=== PATIENT | female | born 1975 ===

== ENCOUNTER 2016-11-27 23:05 | Emergency (ER) | payer BC ==
[~2016-11-27] VITALS: Ht 160 cm; Wt 76.9 kg
[~2016-11-27 23:05] MED LIST: IRON PO; MTR600X PO; OXYC5TAB PO; PRENTAB26 PO
[2016-11-27 23:08] VITALS: TEMP 36.8; Ht 160 cm; Wt 76.9 kg
[2016-11-27] MEDS ORDERED: OXYCODONE HCL IR 5 MG TAB (IMMEDIATE RELEASE) PO STA (23:21)
[2016-11-27] MEDS ORDERED: AMOXICILLIN/CLAVULANATE TAB 875 MG TAB PO ONE (23:30)
--- NOTE | 2016-11-27 23:48 | EMERGENCY ROOM VISIT NOTE ---
History Report prepared by Kaylen: Freida Ovalles Under the Supervision of: Dr. Dawood Carballo D.O. First contact with patient: 23:10 Chief Complaint: BLEEDING Stated Complaint: BLEED FROM SCAR ( OCTOBER 02), SMELL Nursing Triage Summary: Patient c/o bleeding scar and odor from abdomen. October 02. History of Present Illness The patient is a 41 year old female who presents to the Emergency Room with complaints of intermittent bleeding beginning earlier tonight. The patient had a 8 weeks ago on October 02. She has been doing well since the procedure. She has had vaginal bleeding since then that she states has almost completely resolved. Tonight while the patient was in the shower she noticed some bleeding from her incision. The incision had a foul odor. She notes some tenderness around the right side of the incision but denies any abdominal pain. The patient denies fevers and abnormal vaginal discharge. Source of History: patient Onset: tonight Position: abdomen Quality: other (bleeding) Timing: intermittent Modifying Factors (Worsening): other (previous ) Associated Symptoms: No abdominal pain, No fevers Note: Pt reports a foul odor. Review of Systems See HPI for pertinent positives & negatives. A total of 10 systems reviewed and were otherwise negative. Past Medical & Surgical Medical Problems: (1) 38 weeks gestation of (2) Advanced maternal age (AMA), 40 years or greater (3) (4) with 39 completed weeks gestation Surgical Problems: (1) Previous delivery affecting , antepartum Family History No pertinent history stated. Social History Smoking Status: Never Smoker Marital Status: Housing Status: lives with family Occupation Status: employed Current/Historical Medications Scheduled Amoxicillin & Pot Clavulanate (Augmentin 875-125 mg), 875 MG PO BID Multivit/Min/Iron/Fol Ac/Pren ( Vitamin), 1 TAB PO QAM Allergies Coded Allergies: Nut Tree (Verified Allergy, Intermediate, ITCHY THROAT, 11/28/16) Latex1 -Allergic Contact Dermititis (Verified Allergy, Mild, RASH, 11/28/16 ) NO KNOWN DRUG ALLERGIES (Unverified Allergy, Unknown, NONE, 10/01/16) Physical Exam Vital Signs Date Time Temp Pulse Resp B/P Pulse Ox O2 Delivery O2 Flow Rate FiO2 11/28/16 01:27 58 18 136/78 95 Room Air 11/27/16 23:08 36.8 74 18 144/90 97 Room Air Physical Exam GENERAL: Patient is awake, alert, and in no acute distress. Patient is resting comfortably and showing no signs of anxiety EYES: The conjunctivae are clear. The pupils are round and reactive. EARS, NOSE, MOUTH AND THROAT: The nose is without any evidence of any deformity. Mucous membranes are moist tongue is midline NECK: The neck is nontender and supple. RESPIRATORY: Normal respiratory effort is noted there is no evidence of wheezing rhonchi or rales CARDIOVASCULAR: Regular rate and rhythm noted there no murmurs rubs or gallops normal S1 normal S2 GASTROINTESTINAL: The abdomen is soft, nondistended, no tenderness guarding or rigidity. Horizontal suprapubic scar noted. Steri strips were still in place. The right lateral most part of the scar has dehisced. There is a small amount of bloody drainage noted. There was no surrounding cellulitis. MUSCULOSKELETAL/EXTREMITIES: There is no evidence of gross deformity full range of motion is noted in the hips and shoulders SKIN: There is no obvious evidence of any rash. There are no petechiae, pallor or cyanosis noted. NEUROLOGIC: Patient is awake alert and oriented x3 Medical Decision & Procedures ER Provider Diagnostic Interpretation: Radiology results as stated below per my review and radiologist interpretation: US SOFT TISSUE: No fluid collection or other abnormality in the area of interest. Radiologist: Ranjith Appiah M.D. Medications Administered Medications (Trade) Dose Ordered Sig/Guy Route Start Time Stop Time Status Last Admin Dose Admin Oxycodone HCl (Roxicodone Immediate Rel Tab) 5 mg NOW STAT PO 11/27/16 23:21 11/27/16 23:24 DC 11/27/16 23:43 5 MG Amoxicillin/ Clavulanate Potassium (Augmentin Tab) 875 mg ONE ONCE PO 11/27/16 23:30 11/27/16 23:31 DC 11/27/16 23:43 875 MG ED Course 2310: The patient was evaluated in room C6. A complete history and physical examination were performed. 2321: Oxycodone HCl 5 mg PO 2330: Augmentin tab 875 mg PO 0230: Oxycodone HCl 1 homepack PO, Augmentin 875 mg 1 homepack PO 0237: I reassessed the patient at this time. She is feeling better and resting comfortably. I discussed the results and treatment plan with the patient. I answered all pertaining questions that she had. She expressed understanding and verbalized agreement. The patient will be discharged home. Medical Decision Differential diagnosis: Etiologies such as cellulitis, abscess, MRSA infection, DVT, necrotizing fasciitis, dermatitis, drug eruption, as well as others were entertained.. Nursing notes reviewed. The patient is a 41-year-old female who presented to the emergency department for evaluation of pain and drainage on her site. The patient had a C- section 8 weeks ago and noticed bleeding. She has what appears to be minor dehiscence on the right lateral aspect of her surgical site. She was concerned it could be signs of infection. A culture was taken. Ultrasound did not reveal any significant fluid collection. The patient was started on an antibiotic. She was encouraged to call her STATISTICAL PROGRAMMER physician in the morning. She was also encouraged to continue all medications as prescribed. She was also encouraged return to emergency department immediately if symptoms change worsen or the need arises. The patient's physical exam was not consistent with significant cellulitis or sepsis. Impression Primary Impression: Postoperative seroma Additional Impression: possible postoperative infection Scribe Attestation The scribe's documentation has been prepared under my direction and personally reviewed by me in its entirety. I confirm that the note above accurately reflects all work, treatment, procedures, and medical decision making performed by me. Departure Information Dispostion Home / Self-Care Prescriptions Amoxicillin & Pot Clavulanate (Augmentin 875-125 mg) 1 Tab Tab 875 MG PO BID for 7 Days, #14 TAB Prov: Dawood Carballo DO 11/28/16 Referrals No Doctor, Assigned (PCP) Kathryn See M.D. Forms HOME CARE DOCUMENTATION FORM, IMPORTANT VISIT INFORMATION Patient Instructions ED Wound Check Post Op Infec, On License Of [facility] Additional Instructions Call your STATISTICAL PROGRAMMER physician in the morning to schedule a recheck this week. Continue using Motrin and Tylenol as directed for pain. Continue to put a bulky dressing to the area 2 times a day. Problem Qualifiers Primary Impression: Postoperative seroma Surgical complication system/body Area: skin Procedure type: non- dermatologic Qualified Codes: L76.34 - Postprocedural seroma of skin and subcutaneous tissue following other procedure
[2016-11-28 01:27] VITALS: BP 136/78
[2016-11-28] MEDS ORDERED: AMOXICIL/CLAVU 875MG HOME PACK PO ONE (02:30)
[2016-11-28] MEDS ORDERED: OXYCODONE IR HOME PACK PO ONE (02:30)
[2016-11-28] MEDS ORDERED: AMOX875T PO (02:32)
[2016-11-28 02:57] VITALS: PULSE 60; O2SAT 97
--- NOTE | 2016-11-28 07:04 | DIAGNOSTIC IMAGING REPORT ---
ULTRASOUND PELVIC WALL CLINICAL HISTORY: Bleeding from section scar. COMPARISON STUDY: No priors. FINDINGS: Real-time, grayscale, and color flow sonography of the suprapubic pelvic wall is performed at the indicated site of interest. No abnormality is seen at this site. There is no organized fluid collection or mass lesion. IMPRESSION: No hepatomegaly is identified in the pelvic wall at the site of interest. Electronically signed by: Yamil Luu M.D. 11/28/2016 7:02 AM Dictated Date/Time: 11/28/2016 7:01 AM
--- NOTE | 2016-12-03 14:25 | Pharmacy Progress Note ---
ED Pharmacist Culture FollowUp Date of Service: Dec 03, 2016. Patient was sent home with a prescription for Augmentin 875mg PO BID x 7 days, which should cover the E coli and Enterococcus faecalis growing from the patient 's incision drainage culture. This culture is also growing the anaerobe, Prevotella bivia. Sensitivity testing will not be performed on this organism by our lab, however it is possible this organism is also covered with Augmentin based on references reviewed. No action required at this time.
== END 2016-11-28 02:58 | disposition home or self-care (01) ==
LOC: C.EDB 23:06 → C.EDC 11-28 02:58
DX: L76.82 Other postprocedural complications of skin and subcutaneous tissue (principal)

== ENCOUNTER 2017-05-13 21:04 | Emergency (ER) | payer BC ==
[~2017-05-13] VITALS: Ht 158.8 cm; Wt 74.3 kg
[~2017-05-13 21:04] MED LIST changes: -IRON PO; -MTR600X PO; -OXYC5TAB PO
[2017-05-13 21:17] VITALS: BP 127/86; PULSE 93; TEMP 36.7; O2SAT 95; Ht 158.8 cm; Wt 74.3 kg
[2017-05-13] MEDS ORDERED: RABIES VACCINE (IMOVAX) HUMAN DIPL CELL 2.5 INTER.UNIT/ML SYR IM. ONE (21:45)
[2017-05-13] MEDS ORDERED: RABIES IMMUNE GLOBULIN (HUMAN) 150 INTER.UNIT/ML 2 ML VIAL IM. ONE (21:45)
[2017-05-13] MEDS ORDERED: AMOX875T PO (22:17)
[2017-05-13] MEDS ORDERED: ALLERGY PILL PO (22:22)
--- NOTE | 2017-05-13 22:47 | DIAGNOSTIC IMAGING REPORT ---
LEFT SECOND TOE 3 VIEWS CLINICAL HISTORY: Second toe pain. FINDINGS: 3 views of left second toe are obtained. No prior studies are available for comparison at the time of dictation. The skeletal structures are well mineralized. No fracture is seen in the second toe. The metatarsophalangeal and interphalangeal joints are preserved. The overlying soft tissues are within normal limits. IMPRESSION: Unremarkable radiographic assessment of the left second toe. Electronically signed by: Yamil Luu M.D. 05/13/2017 10:46 PM Dictated Date/Time: 05/13/2017 10:45 PM
[2017-05-13] MEDS ORDERED: AMOXICIL/CLAVU 875MG HOME PACK PO ONE (23:15)
--- NOTE | 2017-05-13 23:37 | EMERGENCY ROOM VISIT NOTE ---
History First contact with patient: 21:18 Chief Complaint: BITE Stated Complaint: ATTACKED BY A REDMOND History of Present Illness The patient is a 41 year old female who presents to the Emergency Room with complaints of being attacked by a redmond this evening. The patient was pushing her 7-month-old child, and walking her dog in her neighborhood when she noticed a redmond in the neighbor's yard. As she continued to walk, the redmond started to follow her and then started to attack the dog. When she turned around to try to laxmi it away, and attacked her by biting her in the right foot and left arm. The patient reports that she did fall onto her left side, but sustained no injury to the face, head or back. The erdmond did not attack her child before running away. She reports that the neighbor did kill the redmond, which is currently being tested for rabies. Police were on scene. The patient rates her overall discomfort a 3 out of 10. Tetanus immunization is up-to-date. Review of Systems 10 system review was performed and was negative except for pertinent positives and negatives as indicated in history of present illness Past Medical/Surgical History Medical Problems: (1) 38 weeks gestation of (2) Advanced maternal age (AMA), 40 years or greater (3) (4) with 39 completed weeks gestation Surgical Problems: (1) Previous delivery affecting , antepartum Family History Unremarkable Social History Smoking Status: Never Smoker Marital Status: Housing Status: lives with family Occupation Status: employed Current/Historical Medications Scheduled Amoxicillin & Pot Clavulanate (Augmentin 875-125 mg), 1 TAB PO BID Scheduled PRN [Allergy Pill], 1 TAB PO DAILY PRN for ALLERGIC REACTION Allergies Coded Allergies: Nut Tree (Verified Allergy, Intermediate, ITCHY THROAT, 11/28/16) Latex1 -Allergic Contact Dermititis (Verified Allergy, Mild, RASH, 11/28/16 ) NO KNOWN DRUG ALLERGIES (Unverified Allergy, Unknown, NONE, 10/01/16) Physical Exam Vital Signs Date Time Temp Pulse Resp B/P (MAP) Pulse Ox O2 Delivery O2 Flow Rate FiO2 05/13/17 21:17 36.7 93 18 127/86 95 Room Air Physical Exam CONSTITUTIONAL: Healthy and well nourished. Alert and oriented X 3 with positive affect. She does not appear in any acute distress. HEENT: Normocephalic, atraumatic. Pupils equal, round and reactive. NECK: Full active range of motion without discomfort. RESPIRATORY: Clear to auscultation bilaterally with no wheezing, crackles, rhonchi or stridor. CARDIOVASCULAR: Regular rate and rhythm with no murmurs, rubs or gallops. MUSCULOSKELETAL: Examination shows tenderness to palpation of the left second toe, which was injured from the patient's fall. She also has a superficial abrasion to the left posterior elbow, but has full range of motion without discomfort. INTEGUMENTARY: Examination shows linear lacerations from the bites sustained to her right lateral foot and the distal and ulnar aspect of the left forearm. No active bleeding noted at the sites. NEUROLOGIC: No focal neurologic deficits noted. Medical Decision & Procedures Medications Administered Medications (Trade) Dose Ordered Sig/Guy Route Start Time Stop Time Status Last Admin Dose Admin Rabies Vaccine Human Diploid Cell (Imovax Rabies) 2.5 interunit ONCE ONCE IM. 05/13/17 21:45 05/13/17 21:46 DC 05/13/17 22:56 2.5 INTERUNIT Rabies Immune Globulin (Imogam Rabies Inj) 1,486 interunit ONCE ONCE IM. 05/13/17 21:45 05/13/17 21:46 DC 05/13/17 22:55 1,486 INTERUNIT Amoxicillin/ Clavulanate Potassium (Augmentin 875MG Home Pack) 1 homepack UD ONCE PO 05/13/17 23:15 05/13/17 23:16 DC 05/13/17 23:14 1 HOMEPACK ED Course Patient history and physical exam were performed. Nurse's notes were reviewed. Vital signs were reviewed and were also normal. Because of the suspicious activity of the redmond, I do suspect that it was rapid. For suggested the rabies immunization series, including local injections of immunoglobulin to further lower the risk of rabies. Infiltrative fan-type injections were administered to all wounds for a total of 4 mL. The remaining immunoglobulin (20 units per kilogram) along with Imovax were injected IM. The wounds were cleansed, and the patient was provided a home pack and prescription for Augmentin. She will return on days 3, 7 and 14 for subsequent Imovax injections. Medical Decision Impression Primary Impression: Animal bite Additional Impression: Need for prophylactic vaccination against rabies Departure Information Dispostion Home / Self-Care Prescriptions Amoxicillin & Pot Clavulanate (Augmentin 875-125 mg) 1 Tab Tab 1 TAB PO BID for 5 Days, #10 TAB Prov: Rasheed Larose PA 05/13/17 Forms HOME CARE DOCUMENTATION FORM, IMPORTANT VISIT INFORMATION Patient Instructions My [facility] Additional Instructions Return on the following dates for your subsequent Imovax injections: Day 3 (05/16) Day 7 (05/20) Day 14 (05/27) Complete all Augmentin antibiotics as prescribed. Return to the emergency department for any signs of developing infection. Problem Qualifiers
== END 2017-05-13 23:33 | disposition home or self-care (01) ==
LOC: C.EDB 21:06 → C.EDD 23:33
DX: S90.871A Other superficial bite of right foot, initial encounter (principal); W53.81XA Bitten by other rodent, initial encounter; Z23 Encounter for immunization

== ENCOUNTER 2017-05-16 11:25 | Emergency (ER) | payer BC ==
[~2017-05-16] VITALS: Ht 165.1 cm; Wt 73.6 kg
[~2017-05-16 11:25] MED LIST changes: +ALLERGY PILL PO; +AMOX875T PO; -PRENTAB26 PO
[2017-05-16 11:29] VITALS: TEMP 36.6; Ht 165.1 cm; Wt 73.6 kg
[2017-05-16] MEDS ORDERED: RABIES VACCINE (IMOVAX) HUMAN DIPL CELL 2.5 INTER.UNIT/ML SYR IM. ONE (11:30)
[2017-05-16 11:48] VITALS: BP 101/72; PULSE 76; O2SAT 98
--- NOTE | 2017-05-16 11:52 | EMERGENCY ROOM VISIT NOTE ---
ED Visit Note First contact with patient: 11:27 CHIEF COMPLAINT: Need second rabies vaccine HISTORY OF PRESENT ILLNESS: This 41 year old female who presents to the Emergency Room for her second rabies vaccine after being attacked by a carlin. She states the wounds are healing well. She denies any signs of infection. She is taking Augmentin as prescribed. Review of Systems 10 system review was performed and was negative except for pertinent positives and negatives as indicated in history of present illness Past Medical/Surgical History Medical Problems: (1) 38 weeks gestation of (2) Advanced maternal age (AMA), 40 years or greater (3) (4) with 39 completed weeks gestation Surgical Problems: (1) Previous delivery affecting , antepartum Family History Unremarkable Social History Smoking Status: Never Smoker Marital Status: Housing Status: lives with family Occupation Status: employed PHYSICAL EXAM: Vital Signs: Were reviewed Reviewed Nurse's notes. GENERAL: 41- year-old female appears in no acute distress. MENTAL: Alert and oriented 3. SKIN: Healed scratches noted on the right lateral forearm and right lateral foot without any signs of infection. EMERGENCY DEPARTMENT COURSE: The patient was given Imovax DIAGNOSIS: Post exposure rabies prophylaxis DISCHARGE INSTRUCTIONS: Continue current rabies vaccine schedule as previously directed. Current/Historical Medications Scheduled Amoxicillin & Pot Clavulanate (Augmentin 875-125 mg), 1 TAB PO BID Allergies Coded Allergies: Nut Tree (Verified Allergy, Intermediate, ITCHY THROAT, 05/16/17) Latex1 -Allergic Contact Dermititis (Verified Allergy, Mild, RASH, 05/16/17) NO KNOWN DRUG ALLERGIES (Unverified Allergy, Unknown, NONE, 10/01/16) Vital Signs Date Time Temp Pulse Resp B/P (MAP) Pulse Ox O2 Delivery O2 Flow Rate FiO2 05/16/17 11:48 76 18 101/72 98 Room Air 05/16/17 11:29 36.6 93 20 115/76 96 Room Air Medications Administered Medications (Trade) Dose Ordered Sig/Guy Route Start Time Stop Time Status Last Admin Dose Admin Rabies Vaccine Human Diploid Cell (Imovax Rabies) 2.5 interunit ONCE ONCE IM. 05/16/17 11:30 05/16/17 11:31 DC 05/16/17 11:40 2.5 INTERUNIT Departure Information Referrals Gunner Meyers M.D. (PCP) Patient Instructions [facility]
== END 2017-05-16 12:03 | disposition home or self-care (01) ==
LOC: C.EDB 11:26 → C.EDD 12:03
DX: Z20.3 Contact with and (suspected) exposure to rabies (principal); W55.89XD Other contact with other mammals, subsequent encounter

== ENCOUNTER 2017-05-20 10:32 | Emergency (ER) | payer BC ==
[~2017-05-20] VITALS: Ht 162.6 cm; Wt 73.7 kg
[2017-05-20 10:41] VITALS: TEMP 36.8; Ht 162.6 cm; Wt 73.7 kg
--- NOTE | 2017-05-20 10:57 | EMERGENCY ROOM VISIT NOTE ---
ED Visit Note First contact with patient: 10:51 CHIEF COMPLAINT: Rabies prophylaxis HISTORY OF PRESENT ILLNESS: This 41-year-old female patient presents to the emergency department ambulatory for their third rabies shot. The patient has not had any complications from the previous injections. They deny any other complaints. REVIEW OF SYSTEMS: A 6 system review of systems was completed with positives and pertinent negatives listed in the HPI. ALLERGIES: No known drug allergies MEDICATIONS: Unchanged from previous PMH: Unchanged from previous visit. PHYSICAL EXAM: Vital Signs: Reviewed Nurse's notes, vital signs stable. GENERAL : This is a 41-year-old female, in no acute distress, well-developed, well- nourished. HEAD: Atraumatic, without temporal or scalp tenderness. EYES: PERRLA, EOMI, no discharge or injection. SKIN: Normal. NEUROLOGICAL: Alert and cooperative. Sensory and motor functions grossly intact. EMERGENCY DEPARTMENT COURSE: I examined the patient. The patient was given Imovax 1ml IM. The patient was observed for 20 minutes with no reaction. The patient was discharged home in stable condition. DIAGNOSIS: Rabies prophylaxis DISCHARGE INSTRUCTIONS: Continue vaccination schedule as directed. Return for any complications. Current/Historical Medications No Active Prescriptions or Reported Meds Allergies Coded Allergies: Nut Tree (Verified Allergy, Intermediate, ITCHY THROAT, 05/16/17) Latex1 -Allergic Contact Dermititis (Verified Allergy, Mild, RASH, 05/16/17) NO KNOWN DRUG ALLERGIES (Unverified Allergy, Unknown, NONE, 10/01/16) Vital Signs Date Time Temp Pulse Resp B/P (MAP) Pulse Ox O2 Delivery O2 Flow Rate FiO2 05/20/17 11:33 71 16 122/67 98 05/20/17 10:41 36.8 82 18 112/71 96 Room Air Medications Administered Medications (Trade) Dose Ordered Sig/Guy Route Start Time Stop Time Status Last Admin Dose Admin Rabies Vaccine Human Diploid Cell (Imovax Rabies) 2.5 interunit ONCE ONCE IM. 05/20/17 11:00 05/20/17 11:01 DC 05/20/17 11:10 2.5 INTERUNIT Departure Information Impression Primary Impression: Rabies, need for prophylactic vaccination against Dispostion Home / Self-Care Condition GOOD Prescriptions No Active Prescriptions or Reported Meds Referrals Gunner Meyers M.D. (PCP) Patient Instructions My [facility] Additional Instructions Continue vaccination schedule as directed. Return for any complications.
[2017-05-20] MEDS ORDERED: RABIES VACCINE (IMOVAX) HUMAN DIPL CELL 2.5 INTER.UNIT/ML SYR IM. ONE (11:00)
[2017-05-20 11:33] VITALS: BP 122/67; PULSE 71; O2SAT 98
== END 2017-05-20 11:34 | disposition home or self-care (01) ==
LOC: C.EDB 10:33 → C.EDD 11:34
DX: Z20.3 Contact with and (suspected) exposure to rabies (principal); Z23 Encounter for immunization

== ENCOUNTER 2017-05-27 12:44 | Emergency (ER) | payer BC ==
[~2017-05-27] VITALS: Ht 160 cm; Wt 73.5 kg
[2017-05-27 12:47] VITALS: BP 117/90; PULSE 75; TEMP 36.7; O2SAT 95; Ht 160 cm; Wt 73.5 kg
[2017-05-27] MEDS ORDERED: RABIES VACCINE (IMOVAX) HUMAN DIPL CELL 2.5 INTER.UNIT/ML SYR IM. ONE (12:49)
[2017-05-27] MEDS ORDERED: AMOX875T PO (13:10)
--- NOTE | 2017-05-28 14:14 | EMERGENCY ROOM VISIT NOTE ---
ED Visit Note First contact with patient: 12:53 Chief Complaint: Rabies immunizations. History of Present Illness: Ms. Burton is a 41-year-old white female who ambulates into the ED accompanied by male friend requesting the last rabies vaccination for her series after being bit by a carlin. Patient does report she is feeling well but has noted over the last 48 hours some increasing redness around the wound on the lateral aspect of the right foot. She also reports she has had a mild increase in pain in that area. She describes her pain as an achy sensation. She rates her discomfort 3/10. Her pain is nonradiating. Her pain worsens with palpation. She has not identified any alleviating factors related to the pain. She has not taken medication for pain prior to arrival at the hospital. She denies any associated symptoms including redness or swelling in her other wound, fevers, chills, sweats, other skin eruptions, per respiratory tract symptoms, chest pain, shortness of breath , abdominal pain, decreased appetite, nausea/vomiting, joint pain, foot weakness /numbness/tingling. Review of Systems: As noted above in history of present illness. All body systems were reviewed and found to be negative as noted above. Past Medical History: Status post section. Current Medications: Patient denies. Allergies to Medications: Latex. Social History: Patient is currently employed; she lives with her family and feels safe in her home environment; she denies tobacco use. Physical Examination: Vital Signs: Date Time Temp Pulse Resp B/P (MAP) Pulse Ox O2 Delivery O2 Flow Rate FiO2 05/27/17 12:47 36.7 75 18 117/90 95 Room Air GENERAL: 41-year-old female in no acute distress, nontoxic-appearing, afebrile and hemodynamically stable. NEUROLOGICAL: Awake, alert and oriented to person, place and time. Answering questions appropriately and following commands. Normal gait. Good hand eye coordination. No focal motor or sensory deficits. SKIN: Warm, dry and pink. Left Foot: Shows a animal bite to the lateral aspect of the foot over the fifth metatarsal. There is mild erythema around the wound and it is tender to palpation. The skin is not erythematous and it does not appear cellulitic. There is no lymphangitis. He did compare this to her left arm wound in this area was not tender or erythematous. HEENT: Atraumatic and normocephalic. THORAX: Lungs sounds are clear to auscultation and equal bilaterally with symmetrical chest wall. ABDOMEN: Flat, soft and nontender. Positive bowel sounds in all quadrants. EXTREMITIES: Moves all extremities well on command and with purpose. All distal neurovascular statuses are intact and equal bilaterally. ED Course: Patient is assessed as noted above. Patient's medication list was reviewed. Patient was given 2.5 interunits of rabies vaccination IM. Patient was educated about today's findings and instructed on her treatment plan ; she verbalized understanding and agreement with this plan. Clinical Impression: Rabies immunization. Mild infection to her animal bite. Disposition: Patient discharged home in stable condition accompanied by her ; prior to departure she was reassessed and subjectively reported she was feeling the same. Plan: Patient was prescribed Augmentin 875 mg 2 times a day for 7 days. Patient was encouraged to follow-up with her primary care provider for recheck in 7 days. Patient was encouraged return ED for increasing signs of infection, any side effects from today's immunization or any new/concerning symptoms.
== END 2017-05-27 13:20 | disposition home or self-care (01) ==
LOC: C.EDB 12:45 → C.EDD 13:20
DX: Z20.3 Contact with and (suspected) exposure to rabies (principal); Z23 Encounter for immunization; W55.89XD Other contact with other mammals, subsequent encounter; L08.9 Local infection of the skin and subcutaneous tissue, unspecified

== ENCOUNTER 2017-12-26 06:17 | Day surgery (SDC) | payer BC, OTHER ==
[~2017-12-26] VITALS: Ht 160 cm; Wt 71.0 kg
--- NOTE | 2017-12-26 06:02 | History and Physical ---
History & Physical Date of Service Dec 26, 2017. History & Physical CC: Varicose veins and venous insufficiency of the left lower extremity. HPI: Ms. Burton states that her varicose veins are significantly worse in her left leg than her right and that she noticed some problems since having her first child 18 years ago, but that these worsened significantly with her last last year. She states that she has daily aching discomfort in her lower legs as well as chronic edema, it gets worse throughout the day and is somewhat better after sleeping in the morning. She states that they ache to the point where it is difficult for her to be physically active, and she denies any redness, hardness, or other discoloration. She has never had any procedures performed on the veins in her legs in the past, and states that she was checked for a DVT due to the swelling in her legs at least twice in the last 2 years. Noninvasive testing did show venous insufficiency of the left lower extremity. She denies headaches, fevers, chills, dizziness, chest pain, shortness of breath, abdominal pain, nausea, vomiting, diarrhea or constipation , dysuria, hematuria, rest pain, claudication, nonhealing wounds or ulcers, or other complaints. ALLERGIES: LATEX. HOME MEDICATIONS: Reconciled in the chart and include none. PAST MEDICAL HISTORY: Positive for history of Lyme disease, allergic rhinitis, intermittent asthma. PAST SURGICAL HISTORY: Positive for section, shave biopsy and another section. SOCIAL HISTORY: Negative for tobacco, alcohol or drug use. She does attempt to exercise regularly. FAMILY HISTORY: Positive for lung cancer in a grandmother, as well as varicose veins in her father and his siblings. REVIEW OF SYSTEMS: Negative for fatigue, fevers, sweats, weight loss, abnormal moles or rashes, vision changes or photophobia, ear pain, sinus problems or sore throat, cough, shortness of breath, hemoptysis or wheezing, chest pain, palpitations or syncope, abdominal pain, nausea, vomiting, diarrhea or constipation, dysuria, hematuria, muscle weakness, headaches, dizziness, numbness or seizures. PHYSICAL EXAMINATION: Her vital signs are as follows: Blood pressure 116/70 in the right arm, 104/70 in the left, heart rate of 80 and oxygen saturation 98 % on room air. The patient is 159 cm tall and weighs 71.8 kg. Constitutional: In general, the patient is a healthy appearing for age, well-nourished, well- developed, middle-aged female in no acute distress. She ambulates without assistance and is active, alert and oriented x4 with normal recent and remote memory. Head is normocephalic, atraumatic. Eyes are EOMI. ENMT exam demonstrates no hearing loss, rhinorrhea or pharyngeal erythema. Neck is supple , nontender, with a midline trachea, without masses or crepitus. Lung exam demonstrates no dyspnea. They are clear to auscultation bilaterally. Cardiovascular exam demonstrates nondisplaced apical impulse with a regular rate and rhythm without murmurs, lifts, heaves, thrills or gallops. Peripheral pulses are full and equal in all extremities unless otherwise noted. Specifically, they are normal in her carotid, brachial, radial, femoral, posterior tibial and dorsalis pedis pulses. The patient demonstrates no bruits in her carotid, abdominal or femoral area. Abdomen is soft, nontender, with normoactive bowel sounds in all 4 quadrants without guarding or rebound. There is no flank or CVA tenderness. Musculoskeletal exam demonstrates normal tone and strength for age. Bilateral upper extremities demonstrate no cyanosis, edema, clubbing, varicosities or ulcers. The patient's left lower extremity does demonstrate a rather significant varicosity at her medial ankle area, which extends proximally up to her knee. This is mildly tender. There is no redness or firm hard cord or warmth. She does have +2 edema of her bilateral lower legs with a few spider veins as well. Neurologically, the patient has grossly intact cranial nerves and grossly intact sensation. ASSESSMENT AND PLAN: Imp: Varicose veins of the left lower extremity with venous insufficiency Plan: Patient is admitted for ablation of the greater saphenous vein of the left lower extremity. I have discussed the risks options and benefits of the procedure with the patient. The patient understands the risks options and benefits and agrees to the procedure.
[~2017-12-26 06:17] MED LIST changes: -ALLERGY PILL PO; -AMOX875T PO; +CEFAZOLIN 1000MG IV PUSH 7.5 ML IV SCH; +SODIUM CHLORIDE 0.9% 1000ML IV SCH
[2017-12-26 06:39] VITALS: BP 125/65; PULSE 77; TEMP 36.7; O2SAT 97; Ht 160 cm; Wt 71.0 kg
[2017-12-26] MEDS ORDERED: LIDOCAINE HCL 1% 20 ML VIAL ONE (07:40)
[2017-12-26] MEDS ORDERED: LIDOCAINE/EPINEPHRINE 1% 20 ML VIAL ONE (07:40)
--- NOTE | 2017-12-26 07:45 | History & Physical Bridge Note ---
H&P Re-Evaluation Bridge Note: I have examined the patient, reviewed the History & Physical and in the interval since the performance of the History & Physical I have noted the following changes of clinical significance: No changes noted
--- NOTE | 2017-12-26 07:46 | Pre Sedation Assessment ---
Pre Sedation Assessment General Date of Sedation: Dec 26, 2017. Vital Signs Past 12 Hours Date Time Temp Pulse Resp B/P (MAP) Pulse Ox O2 Delivery O2 Flow Rate FiO2 12/26/17 06:39 36.7 77 18 125/65 (85) 97 Room Air Review Cardiovascular: regular rate, rhythm Lungs: lungs clear Pre-Sedation Airway Assessment Smoking Status: Never Smoker Hx of Sleep Apnea: No Short Thick Neck: No Oral Cavity: WNL Mallampati Classification: Class I ASA Classification: Class I NPO Status Date of Last Intake of Fluids: Dec 25, 2017 Time of Last Intake of Fluids: 2300 Date of Last Intake of Solids: Dec 25, 2017 Time of Last Intake of Solids: 1999 Procedure Planning Contraindications for Sedation: None Current Medications Reviewed: Yes Notes The planned sedation has been discussed with the patient. Informed Consent was obtained. I have identified the patient, determined the appropriateness of sedation and have assessed the patient immediately prior to the procedure. All medicine(s) and interventions are by my order.
[2017-12-26] MEDS ORDERED: FENTANYL CITRATE INJ 50 MCG/1 ML 2 ML VIAL ONE (07:56)
[2017-12-26] MEDS ORDERED: MIDAZOLAM HCL 1 MG/ML 2ML VIAL ONE ×2 (07:56→08:38)
[2017-12-26] MEDS ORDERED: SODIUM BICARB 8.4% INJ 50 MEQ/50 ML SYR IV ONE (07:59)
[2017-12-26] MEDS ORDERED: LIDOCAINE HCL 1% 20 ML VIAL INJ ONE (08:26)
[2017-12-26] MEDS ORDERED: ORM MISCELLANEOUS MED XX ONE (08:55)
[2017-12-26] MEDS ORDERED: MIDAZOLAM HCL 5 MG/ML 1 ML VIAL IV ONE (08:57)
--- NOTE | 2017-12-26 08:57 | Post Sedation Assessment ---
Post Sedation Assessment General Date of Sedation Dec 26, 2017. Vital Signs: Vital Signs Past 12 Hours Date Time Temp Pulse Resp B/P (MAP) Pulse Ox O2 Delivery O2 Flow Rate FiO2 12/26/17 08:50 74 16 98 Mask 4 12/26/17 08:45 73 16 98 Mask 4 12/26/17 08:40 73 16 99 Mask 4 12/26/17 08:35 73 16 100 Mask 4 12/26/17 08:30 67 16 99 Mask 4 12/26/17 08:25 74 16 99 Mask 4 12/26/17 08:20 76 16 100 Mask 4 12/26/17 08:15 64 16 100 Mask 4 12/26/17 08:10 81 16 113/71 100 Mask 4 12/26/17 06:39 36.7 77 18 125/65 (85) 97 Room Air Post Procedure Recovery Score Activity: (2) Moves 4 extremities * Respiration: (2) Deep breath/cough Circulation: (2) +/-20% PreAnes Value Consciousness: (2) Fully Awake Oxygen Saturation: (1) O2 needed for >90% Post Anesthesia Score: 9 Discharge Sedation Level of Care: Fast Track Phase II Post Sedation Plan On clinical assessment, the patient appears to have tolerated the sedation without complications. Patient is recovering as anticipated. Patient will continue to be monitored by nursing and may be discharged when sedation discharge criteria are met per below protocol. Upon Completions of procedure and additional 15 minutes continue every 5 minute vital signs and the P.A.R. score; then discharge to a Phase I or Fast Track to Phase II per the following guidelines: * Discharge Patient to appropriate Phase II area if PAR is 8 or greater or return to pre- procedure baseline. The post - procedure orders will be as directed. * If PAR score is less than 8 or not return to pre-procedure baseline then patient will follow Phase I monitoring till PAR is reached for Phase II. The Phase I may be done in procedure room or may call to secure a Phase I area. * If naloxone or flumazenil are used for reversal, hold in Phase I for an additional 60 -120 minutes before discharge to Phase II. Please call the Sedation Physician to re-evaluate and complete post-note for discharge to Phase II area. Do NOT discharge from procedure sedation or Phase 1 until post- sedation evaluation note is complete by procedure /sedation MD Sedation Discharge Instructions to be given to the patient at discharge to home.
--- NOTE | 2017-12-26 08:57 | [facility] Post Operative Brief Note ---
Immediate Operative Summary Operative Date Dec 26, 2017. Pre-Operative Diagnosis Venous Insufficiency Post-Operative Diagnosis Venous Insufficiency Procedure(s) Performed Left Lower Extremity Great Saphenous Vein Radiofrequency Ablation Moderate Sedation [id number] Surgeon Franklin Assembly Detailer Surgeon(s) Tara Novoa Estimated Blood Loss 0 Findings Consistent with Post-Op Diagnosis Specimens None Drains None Anesthesia Type IV Sedat Cons RN Only Complication(s) none Disposition Accompanied Pt To Recover: no Disposition:
[2017-12-26] MEDS ORDERED: FENTANYL CITRATE INJ 50 MCG/1 ML 2 ML VIAL IV ONE (09:03)
--- NOTE | 2017-12-26 09:07 | Discharge Instructions ---
Discharge Instructions Date of Service Dec 26, 2017. Visit Reason for Visit: Varicose Veins W/Pain Discharge Discharge Diagnosis / Problem: venous insufficiency Discharge Goals Goal(s): Therapeutic intervention Activity Recommendations Activity Limitations: per Instructions/Follow-up section Anesthesia . Post Anesthesia Instructions: If you have had General Anesthesia or IV Sedation: * Do not drive today. * Resume driving when surgeon permits. * Do not make important decisions or sign legal documents today. * Call surgeon for: 1. Temperature elevations greater than 101 degrees F. 2. Uncontrollable pain. 3. Excessive bleeding. 4. Persistent nausea and vomiting. 5. Medication intolerance (nausea, vomiting or rash). * For nausea and vomiting use only clear liquids such as: tea, soda, bouillon until nausea subsides, then gradually increase diet as tolerated. * If you have any concerns or questions, call your surgeon's office. If physician is unavailable and it is an emergency, call 911 or go to the nearest emergency room. . Instructions / Follow-Up Instructions / Follow-Up Call [phone] to schedule a follow up appointment if one not already scheduled. SPECIAL CARE INSTRUCTIONS: Wraps/Dressings: * A compression wrap will be applied to your legs after the procedure and should remain in place until the morning after. * Remove the bandage if it rolls down or causes pain. Rewrap the leg starting at the bottom of the leg, just above the toes. Apply firm, but gently pressure when applying the wrap. * Avoid getting the wrap wet. * You may shower the following morning after you remove the wraps/dressings. Compression Stockings: * Begin wearing compression stockings the day following your procedure (after you have removed the wraps/dressings and showered). * Compression stockings should be put on in the morning and removed right before going to bed. * Stockings should be worn for 2 weeks following the procedure. * YOU MUST OBTAIN THE PRESCRIBED STOCKINGS PRIOR TO YOUR PROCEDURE. Activity: * Walk 4-5 times around the house after you come home from your procedure. * Elevate your leg(s) while sitting. * You may resume your normal activities as tolerated after 48 hours. * AVOID HEAVY LIFTING FOR 1 WEEK AND/OR CAR TRIPS OVER 1 HOUR OR FLYING FOR 2 WEEKS. Possible Complications: * Swelling/Bruising/Soreness - You may have some swelling, bruising and/or soreness after the procedure. you may also feel a "cord or rope" under the skin. This is normal. You may take Tylenol or Ibuprofen for pain as directed. Call our office ([phone]) if you develop: * Any redness, severe swelling, pain in the calf and/or drainage from the puncture sites You will be receiving a call from the Vascular Surgery Nurse after you are discharged. FOLLOW UP VISIT: You will be scheduled for an ultrasound of your leg(s) 4-5 days after the procedure. You will have a follow up visit with your surgeon in 2-4 weeks. If these have not already been scheduled, please call our office at to schedule. Diet Recommendations Recommended Home Diet: resume previous diet Procedures Procedures Performed: Left Lower Extremity Great Saphenous Vein Radiofrequency Ablation Moderate Sedation [id number] Pending Studies Studies pending at discharge: no Medical Emergencies . Who to Call and When: Medical Emergencies: If at any time you feel your situation is an emergency, please call 911 immediately. . Non-Emergent Contact Non-Emergency issues call your: Surgeon . . "Provider Documentation" section prepared by Gilberto Reid. .
[2017-12-26 09:10] VITALS: BP 106/65; PULSE 79; TEMP 36.6; O2SAT 96
[2017-12-26 09:25] VITALS: BP 99/61; PULSE 67; O2SAT 97
--- NOTE | 2017-12-26 09:31 | DIAGNOSTIC IMAGING REPORT ---
DATE OF PROCEDURE: 12/26/2017 PREOPERATIVE DIAGNOSIS: Left lower extremity venous insufficiency. POSTOPERATIVE DIAGNOSIS: Left lower extremity venous insufficiency. OPERATIVE PROCEDURE: Radiofrequency ablation of left great saphenous vein. Moderate sedation 35 minutes. SURGEON: Dr. Gilberto Reid. MARBLE CHIP TERRAZZO WORKER: Dr. Alfreda Novoa. ESTIMATED BLOOD LOSS: 0 mL. SPECIMENS: None. ANESTHESIA: Moderate sedation plus local. COMPLICATIONS: None. INDICATIONS: Mrs. Makenna Burton is a 42-year-old woman with history of Lyme disease, asthma, and varicose veins of the left lower extremity. She was found to have venous insufficiency of the left lower extremity on imaging. For this reason, she was recommended to undergo an ablation of the left greater saphenous vein. The risks, benefits and alternatives were discussed with the patient and she consented to the procedure. DESCRIPTION OF PROCEDURE: The patient was taken to the procedure suite and placed in supine position. The left lower extremity was prepped and draped in the usual sterile fashion. A safety timeout was performed and the patient, procedure, and sidedness were correctly identified. The patient was given moderate sedation with Versed and fentanyl. Ultrasound was used to identify the left greater saphenous vein. The saphenous was accessed at the level of the mid calf with a micropuncture needle. A guidewire easily passed through the needle and into the saphenous vein. A small skin sean was made and the needle was removed and the sheath was placed. A guidewire was passed through the sheath and identified under ultrasound of the saphenofemoral junction. A 100 cm radiofrequency ablation catheter was brought onto the field and passed over the wire up to the saphenofemoral junction. This was imaged under ultrasound and the catheter was pulled back so that it was 2 cm away from the saphenofemoral junction. Tumescent anesthesia was then used to insulate the saphenous vein from surrounding tissues. A total of 350 mL of tumescent was injected into the tissue surrounding the saphenous vein across its length. The catheter was then used to ablate the greater saphenous beginning at 2 cm distal to the saphenofemoral junction. A total of 4 minutes and 40 seconds of ablation time which equated to 14 cycles of ablation were required to ablate the vein. Following ablation, saphenofemoral junction was again imaged with ultrasound and appeared patent. There did not appear to be any signs of DVT. The catheter was removed without difficulty and manual pressure was held over the access site for several minutes until hemostasis was achieved. The left leg was wrapped with Fish wrap bandage. The patient was transferred to the recovery area in stable condition. She tolerated the procedure well and there were no immediate complications. Dr. Gilberto Reid was present for the entire procedure.
[2017-12-26 09:40] VITALS: BP 102/68; PULSE 68; O2SAT 99
[2017-12-26 09:54] VITALS: BP 105/63; PULSE 70; O2SAT 96
[2017-12-26 10:09] VITALS: BP 111/66; PULSE 69; TEMP 36.2; O2SAT 97
== END 2017-12-26 10:10 | disposition home or self-care (01) ==
LOC: C.ACU 06:17
PROVIDERS: ATTEND Surgery Vascular Surgery
DX: I87.2 Venous insufficiency (chronic) (peripheral) (principal); I83.892 Varicose veins of left lower extremity with other complications; Z91.040 Latex allergy status; J45.909 Unspecified asthma, uncomplicated; Z98.890 Other specified postprocedural states; Z80.1 Family history of malignant neoplasm of trachea, bronchus and lung